=== PATIENT | male | born 1940 | race Caucasian/White ===

== ENCOUNTER 2024-04-19 09:05 | Inpatient (IN) | payer MEDICARE, OTHER ==
[2024-04-19] MEDS ORDERED: NA CHLORIDE 0.9% 1,000 ML ONE ×2 (09:50→21:09)
--- NOTE | 2024-04-19 10:07 | RAD REPORT ---
EXAMINATION: Head Brain Wo Cont CLINICAL INDICATION: Male, 83 years old.CONFUSED TECHNIQUE: Axial CT images from the skull base to the vertex without intravenous contrast. Coronal an d sagittal reformatted images were created from the data set. One or more of the following dose reduction techniques were used: Automated exposure control, adjustment of the mA and/or kV according to patient size, and/or iterative reconstruction. Unless otherwise specified, incidental findings do not require dedicated imaging follow-up. [id number]. COMPARISON: No prior exam. FINDINGS: INTRACRANIAL: No acute intracranial hemorrhage. No hydrocephalus. No mass effect or midline shift. Mo derate size remote left MCA territory infarct.Age advanced cerebral atrophy. VASCULATURE: No visualized abnormalities in the arteries or dural venous sinuses. SCALP/SKULL: No calvarial fracture identified. No acute soft tissue abnormality. SINUSES: The visualized paranasal sinuses and mastoid air cells are predominantly clear. No significa nt mastoid fluid. IMPRESSION: No acute intracranial abnormality.
[2024-04-19 10:35] LABS: Absolute Eosinophils 0.2 K/uL (0-0.5); Absolute Lymphocytes (CBC) 0.8 K/uL (0.7-4.9); Absolute Monocytes 0.5 K/uL (0.1-1.3); Absolute Neutrophil 10.8 K/uL (1.8-8.0); Basophils % 0.3 % (0-1.3); Eosinophils % 1.3 % (0-4.4); Hemoglobin 10.8 g/dL (13.6-17.9); Lymphocytes % 6.7 % (15.3-44.8); MCH 31.8 pg (27.0-35.0); MCHC 33.8 g/dL (32.0-36.0); MCV 93.9 fL (80-100); MPV 10.1 fL (7.6-11.3); Monocytes % 3.8 % (3.3-12.3); Neutrophils % 87.9 % (41.7-73.7); Nucleated Red Blood Cells % 0.1 % (0-0); Platelets 171 thou/uL (152-406); RBC Red Blood Cell Count 3.41 M/uL (4.33-5.43); Red Cell Distribution Width 14.2 % (12.1-15.2)
--- NOTE | 2024-04-19 10:37 | RAD REPORT ---
EXAM: Chest Single View HISTORY: 83 years Male ams COMPARISON: None. FINDINGS: LUNGS/PLEURA: Linear opacities in the lung bases probably representing some atelectasis or subsegment al scarring. CARDIAC/MEDIASTINUM: The cardiac silhouette is within normal limits. UPPER ABDOMEN: No significant abnormality. BONES: No acute abnormality. LINES/TUBES/OTHER: N/A IMPRESSION: Likely some mild scarring or atelectasis in the lung bases. No consolidative airspace disease or tia a.
[2024-04-19 10:58] LABS: Albumin 2.4 g/dL (3.4-5.0); Albumin/Globulin Ratio 0.6 (1.1-1.8); Anion Gap 10.9 mEq/L (5.0-15.0); Bilirubin Direct 0.5 mg/dL (0-0.2); Bilirubin Indirect, Calculated 0.4 mg/dL (0.2-0.8); Bilirubin Total 0.9 mg/dL (0.2-1.0); Potassium 3.9 mEq/L (3.5-5.1); Protein, Total 6.4 g/dL (6.4-8.2); Troponin High Sensitivity 21.2 pg/mL (<58.9)
[2024-04-19 13:39] LABS: Specific Gravity 1.026 (1.005-1.030); Sqamous Epithelial <5 /HPF (None Seen); Transitional Epithelial <5 /HPF (None Seen); Urine Bacteria <20 /HPF (<20); Urine Bilirubin NEGATIVE (Negative); Urine Blood Trace (Negative); Urine Clarity Extremely Turbid (Clear); Urine Color Yellow (Yellow); Urine Culture Reflex Order NOT NEEDED; Urine Glucose NEGATIVE (Negative); Urine Ketones NEGATIVE (Negative); Urine Micro Reflex YN NO BILL MICROSCOPIC; Urine Mucus Slight /HPF (None Seen); Urine Nitrite NEGATIVE (Negative); Urine Protein 1+ (Negative); Urine RBC <5 /HPF (None Seen); Urine Urobilinogen Normal (Normal); Urine WBC <5 /HPF (<5); Urine pH 5.5 (5.0-7.0)
--- NOTE | 2024-04-19 14:03 | EDPHYS ---
Physician Documentation [facility] Name: Arjun Barillas Age: 83 yrs Sex: Male : 1940 Arrival Date: 04/19/2024 Time: 09:05 Bed 17 Private MD: ED Physician Eliot Powers HPI: 04/19 09:50 This 83 yrs old Male presents to ER via EMS with complaints of Doesn't Feel Right. rt 10:21 Patient presents to the ED with generally not feeling well for the past 3 days, history rt is limited due to patient with advanced dementia. No further history could be obtained, denies other symptoms. Symptoms are moderate in severity, no other aggravating or alleviating factors.. Historical: - Allergies: :35 No Known Allergies; bp - Home Meds: :35 Unable to obtain [Active]; bp - PMHx: 09:35 Cerebrovascular accident; Alzheimer's disease; bp - Immunization history:: Adult Immunizations up to date. - Infectious Disease History:: Denies. - Social history:: Smoking status: Patient denies any tobacco usage or history of. - Family history:: not pertinent. ROS: 10:21 Constitutional: rt 10:21 Unable to obtain ROS due to baseline dementia, Exam: 10:21 Constitutional: This is a well developed, well nourished patient who is awake, alert, rt and in no acute distress. Head/Face: Normocephalic, atraumatic. Chest/axilla: Normal chest wall appearance and motion. Nontender with no deformity. No lesions are appreciated. Cardiovascular: Regular rate and rhythm with a normal S1 and S2. No gallops, murmurs, or rubs. Normal PMI, no JVD. No pulse deficits. Respiratory: Lungs have equal breath sounds bilaterally, clear to auscultation and percussion. No rales, rhonchi or wheezes noted. No increased work of breathing, no retractions or nasal flaring. Abdomen/GI: Soft, non-tender, with normal bowel sounds. No distension or tympany. No guarding or rebound. No evidence of tenderness throughout. Skin: Warm, dry with normal turgor. Normal color with no rashes, no lesions, and no evidence of cellulitis. MS/ Extremity: Pulses equal, no cyanosis. Neurovascular intact. Full, normal range of motion. Neuro: Awake and alert, GCS 15, oriented to person, place, time, and situation. Cranial nerves II-XII grossly intact. Motor strength 5/5 in all extremities. Sensory grossly intact. Cerebellar exam normal. Normal gait. 14:04 ECG was reviewed by the Attending Physician. rt Vital Signs: 09:34 BP 135 / 55; Pulse 45; Resp 15; Temp 98; Pulse Ox 97% ; Weight 68.04 kg; Height 5 ft. 7 ll1 in. ; 11:00 BP 128 / 88; Pulse 56; Resp 17; Pulse Ox 100% ; me1 12:00 BP 121 / 69; Pulse 56; Resp 17; Pulse Ox 100% ; me1 13:00 BP 150 / 44; Pulse 45; Resp 19; Pulse Ox 93% ; me1 14:00 BP 111 / 59; Pulse 53; Resp 20; Pulse Ox 90% on R/A; me1 15:00 BP 139 / 95; Pulse 53; Resp 19; Pulse Ox 97% on 2 lpm NC; me1 16:00 BP 143 / 52; Pulse 51; Resp 21; Pulse Ox 97% 2 lpm ; me1 17:00 BP 147 / 49; Pulse 62; Resp 18; Pulse Ox 95% 2 lpm ; me1 17:57 Temp 101.4; me1 09:34 Body Mass Index 23.49 (68.04 kg, 170.18 cm) ll1 MDM: 09:25 Medical Screening Exam initiated rt 14:04 Differential Diagnosis SHREYA, dehydration, anemia, UTI. Data reviewed: vital signs, rt nurses notes, lab test result(s), EKG, radiologic studies. Consideration of Admission/Observation Patient was admitted/placed on observation. Management of patient was discussed with the following: Hospitalist: Agrees to admit. I considered the following discharge prescriptions or medication management in the emergency department Medications were administered in the Emergency Department. See MAR. Independent interpretation of the following test(s) in the Emergency Department CT Scan: My interpretation is No intracranial hemorrhage syndrome interpretation of CT scan images. Care significantly affected by the following chronic conditions: Dementia. Counseling: I had a detailed discussion with the patient and/or guardian regarding the historical points, exam findings, and any diagnostic results supporting the discharge/admit diagnosis, lab results, radiology results. Response to treatment: the patient's symptoms have mildly improved after treatment. 04/19 09:30 Order name: Basic Metabolic Panel; Complete Time: 11:05 rt 04/19 09:30 Order name: CBC with Diff; Complete Time: 11:05 rt 04/19 09:30 Order name: LFT's; Complete Time: 11:05 rt 04/19 09:30 Order name: Troponin HS; Complete Time: 11:05 rt 04/19 09:30 Order name: UAM; Complete Time: 13:40 rt 04/19 17:26 Order name: Basic Metabolic Panel EDMS 04/19 17:26 Order name: Basic Metabolic Panel EDMS 04/19 17:26 Order name: Basic Metabolic Panel EDMS 04/19 17:26 Order name: Basic Metabolic Panel EDMS 04/19 17:26 Order name: Basic Metabolic Panel EDMS 04/19 17:26 Order name: Basic Metabolic Panel EDMS 04/19 17:26 Order name: Basic Metabolic Panel EDMS 04/19 17:26 Order name: Basic Metabolic Panel EDMS 04/19 17:26 Order name: CBC with Automated Diff EDMS 04/19 17:26 Order name: CBC with Automated Diff EDMS 04/19 17:26 Order name: CBC with Automated Diff EDMS 04/19 17:26 Order name: CBC with Automated Diff EDMS 04/19 17:26 Order name: CBC with Automated Diff EDMS 04/19 17:26 Order name: CBC with Automated Diff EDMS 04/19 17:26 Order name: CBC with Automated Diff EDMS 04/19 17:26 Order name: CBC with Automated Diff EDMS 04/19 17:26 Order name: Magnesium EDMS 04/19 17:26 Order name: Magnesium EDMS 04/19 17:26 Order name: Magnesium EDMS 04/19 17:26 Order name: Magnesium EDMS 04/19 17:26 Order name: Magnesium EDMS 04/19 17:26 Order name: Magnesium EDMS 04/19 17:26 Order name: Magnesium EDMS 04/19 17:26 Order name: Magnesium EDMS 04/19 17:26 Order name: Phosphorus EDMS 04/19 17:26 Order name: Phosphorus EDMS 04/19 17:26 Order name: Phosphorus EDMS 04/19 17:26 Order name: Phosphorus EDMS 04/19 17:26 Order name: Phosphorus EDMS 04/19 17:26 Order name: Phosphorus EDMS 04/19 17:26 Order name: Phosphorus [facility] 04/19 17:26 Order name: Phosphorus [facility] 04/19 17:26 Order name: Troponin High Sensitivity [facility] 04/19 17:26 Order name: Troponin High Sensitivity [facility] 04/19 17:26 Order name: Troponin High Sensitivity [facility] 04/19 17:59 Order name: Blood Culture [facility] 04/19 09:30 Order name: XRAY Chest (1 view); Complete Time: 10:38 rt 04/19 09:30 Order name: CT Head Brain wo Cont; Complete Time: 10:38 rt 04/19 09:30 Order name: EKG; Complete Time: 09:31 rt 04/19 17:26 Order name: Speech Therapy Consult [facility] 04/19 17:27 Order name: Physical Therapy Consult [facility] 04/19 09:30 Order name: Cardiac monitoring; Complete Time: 10:23 rt 04/19 09:30 Order name: IV Saline Lock; Complete Time: 10: rt 04/19 09:30 Order name: Labs collected and sent; Complete Time: 10: rt 04/19 09:30 Order name: O2 Per Protocol; Complete Time: 10:23 rt 04/19 09:30 Order name: O2 Sat Monitoring; Complete Time: 10:23 rt EC:04 Rate is 54 beats/min. Rhythm is regular, 2nd Degree Block with No ectopy. QRS [place] is rt Normal. NM interval is normal. QRS interval is normal. QT interval is normal. No Q waves. No ST changes noted. Administered Medications: 10:00 Drug: NS 0.9% IV 1000 ml IV at 1000 ml once; to be given as a bolus over 60 minutes bp Route: IV; Rate: 1000 ml; Site: right antecubital; 13:26 Follow up: Response: No adverse reaction; IV Status: Completed infusion; IV Intake: me1 1000ml 16:26 Drug: Geodon IM 10 mg IM once Route: IM; Site: left deltoid; me1 17:35 Follow up: Response: No adverse reaction me1 17:58 Drug: Acetaminophen PO 1000 mg PO once Route: PO; me1 19:19 Follow up: Response: No adverse reaction; Temperature is decreased me1 Disposition Summary: 04/19/24 17:00 Hospitalization Ordered Notes: Hospitalization Status: Inpatient Admission(04/19/24 17:00) rt Provider: Sue Haney(04/19/24 17:00) rt Location: Telemetry/MedSurg (observation)(04/19/24 17:00) rt Condition: Stable(04/19/24 17:00) rt Problem: new(04/19/24 17:00) rt Symptoms: have improved(04/19/24 17:00) rt Bed/Room Type: Standard(04/19/24 17:00) rt Room Assignment: [facility](04/19/24 20:46) Diagnosis - Acute kidney injury rt - Generalized weakness rt Forms: - Medication Reconciliation Form rt - SBAR form rt - Leadership Thank You Letter rt Signatures: Dispatcher [employer] Steph Hernandez, RN RN cg Tate Holland RN RN bp Eliot Powers MD MD rt Abril Davis RN RN me1 Corrections: (The following items were deleted from the chart) 16:06 14:02 Inpatient Admission rt rt 16:06 14:02 Joe Ornelas rt rt 16:06 14:02 Telemetry/MedSurg (Inpatient) rt rt 16:06 14:02 Fair rt rt 16:06 14:02 new rt rt 16:06 14:02 have improved rt rt 16:06 14:02 Standard rt rt 16:06 14:02 rt rt 16:06 14:02 Generalized weakness rt rt 16:06 14:02 Acute kidney injury rt rt 16:58 16:07 DrOdilon rt rt 16:58 16:07 's Administration System rt rt 16:58 16:07 Patient request rt rt 16:58 16:07 Stable rt rt 16:58 16:07 new rt rt 16:58 16:07 are unchanged rt rt 16:58 16:07 Acute kidney injury rt rt 20:46 17:00 rt cg
--- NOTE | 2024-04-19 14:03 | ER ---
Nurse's Notes [facility] Name: Arjun Barillas Age: 83 yrs Sex: Male : 1940 Arrival Date: 04/19/2024 Time: 09:05 Bed 17 Private MD: Diagnosis: Acute kidney injury;Generalized weakness Presentation: 04/19 09:34 Chief complaint: EMS states: 3 DAYS PROGRESSIVE MALAISE. Coronavirus screen: At this bp time, the client does not indicate any symptoms associated with coronavirus-19. Ebola Screen: No symptoms or risks identified at this time. Initial Sepsis Screen: Does the patient meet any 2 criteria? No. Patient's initial sepsis screen is negative. Does the patient have a suspected source of infection? No. Patient's initial sepsis screen is negative. Risk Assessment: Do you want to hurt yourself or someone else? Patient reports no desire to harm self or others. Onset of symptoms is unknown. Care prior to arrival: IV initiated. 20 GA, in the right antecubital area, Glucose check: 86. 09:34 Method Of Arrival: EMS bp 09:34 Acuity: BETTY 3 bp Triage Assessment: 09:35 General: Appears in no apparent distress. Behavior is calm, cooperative. Pain: Denies bp pain. EENT: No deficits noted. Neuro: No deficits noted. Cardiovascular: Rhythm is sinus bradycardia. Respiratory: No deficits noted. GI: No signs and/or symptoms were reported involving the gastrointestinal system. : No signs and/or symptoms were reported regarding the genitourinary system. Derm: No deficits noted. Musculoskeletal: No deficits noted. Historical: - Allergies: 09:35 No Known Allergies; bp - Home Meds: 09:35 Unable to obtain [Active]; bp - PMHx: 09:35 Cerebrovascular accident; Alzheimer's disease; bp - Immunization history:: Adult Immunizations up to date. - Infectious Disease History:: Denies. - Social history:: Smoking status: Patient denies any tobacco usage or history of. - Family history:: not pertinent. Screenin:30 [facility] ED Fall Risk Assessment (Adult) History of falling in the last 3 months, me1 including since admission No falls in past 3 months (0 pts) Confusion or Disorientation Yes (5 pts) Intoxicated or Sedated No (0 pts) Impaired Gait Yes (1 pt) Mobility Assist Device Used Yes (1 pt) Altered Elimination No (0 pt) Score/Fall Risk Level 3 or more points = High Risk Maintained a safe environment, Provided non-skid footwear, Hourly rounding (assess needs \T\ fall precautionary measures) done. Abuse screen: Denies threats or abuse. Nutritional screening: No deficits noted. Tuberculosis screening: No symptoms or risk factors identified. Assessment: 09:35 General: Appears in no apparent distress. comfortable. General: Appears in no apparent bp distress. Pain: Denies pain. Neuro: Level of Consciousness is awake, obeys commands, Oriented to person. Cardiovascular: Rhythm is atrial fibrillation. 12:30 General: Appears in no apparent distress. comfortable, Behavior is calm, cooperative, me1 appropriate for age, Reports fatigue for 2-3 days. Pain: Denies pain. Neuro: Level of Consciousness is awake, alert, obeys commands, confused, Oriented to person. Cardiovascular: Patient's skin is warm and dry. Respiratory: Reports cough that is dry, Airway is patent Respiratory effort is even, unlabored, Respiratory pattern is regular, symmetrical. GI: No signs and/or symptoms were reported involving the gastrointestinal system. : No signs and/or symptoms were reported regarding the genitourinary system. EENT: No signs and/or symptoms were reported regarding the EENT system. Derm: Skin is intact, is healthy with good turgor, Skin is pink, warm \T\ dry. Musculoskeletal: No signs and/or symptoms reported regarding the musculoskeletal system. Vital Signs: 09:34 BP 135 / 55; Pulse 45; Resp 15; Temp 98; Pulse Ox 97% ; Weight 68.04 kg; Height 5 ft. 7 ll1 in. ; 11:00 BP 128 / 88; Pulse 56; Resp 17; Pulse Ox 100% ; me1 12:00 BP 121 / 69; Pulse 56; Resp 17; Pulse Ox 100% ; me1 13:00 BP 150 / 44; Pulse 45; Resp 19; Pulse Ox 93% ; me1 14:00 BP 111 / 59; Pulse 53; Resp 20; Pulse Ox 90% on R/A; me1 15:00 BP 139 / 95; Pulse 53; Resp 19; Pulse Ox 97% on 2 lpm NC; me1 16:00 BP 143 / 52; Pulse 51; Resp 21; Pulse Ox 97% 2 lpm ; me1 17:00 BP 147 / 49; Pulse 62; Resp 18; Pulse Ox 95% 2 lpm ; me1 17:57 Temp 101.4; me1 09:34 Body Mass Index 23.49 (68.04 kg, 170.18 cm) ll1 ED Course: 09:22 Patient arrived in ED. bd 09:23 Eliot Powers MD is Attending Physician. rt 09:33 Tate Holland, PAOLO is Primary Nurse. bp 09:35 Triage completed. bp 09:35 Arm band placed on. bp 09:50 CT Head Brain wo Cont In Process Unspecified. EDMS 10:30 XRAY Chest (1 view) In Process Unspecified. EDMS 12:05 Maintain EMS IV. Dressing intact. Good blood return noted. Site clean \T\ dry. Gauge \T\ me 1 site: 20g RAC. Flushed with 10 mL NS. 12:30 Allergy band placed. Bed in low position. Call light in reach. Side rails up X2. me1 Provided Education on: POC. Verbalized understanding.. Client placed on continuous cardiac and pulse oximetry monitoring. NIBP monitoring applied. monitor technician on. Pulse ox on. NIBP on. 12:30 No provider procedures requiring assistance completed. me1 13:26 UAM Sent. me1 13:26 Urine collected: clean catch specimen, jocelyn colored. me1 14:02 Joe Ornelas MD is Hospitalizing Provider. rt 14:36 initiated transfer to [facility], faxed chart to ER as requested by transfer center. bd 16:[address] Powers, pt will stay at [facility]. bd 16:59 Sue Haney MD is Hospitalizing Provider. rt 20:25 First set of blood cultures drawn by me. oe 20:45 Second set of blood cultures drawn by me. oe 20:50 Inserted saline lock: 22 gauge in left wrist, using aseptic technique. Blood collected. oe Flushed with 10 mL NS. 21:17 Patient admitted, IV remains in place. me1 Administered Medications: 10:00 Drug: NS 0.9% IV 1000 ml IV at 1000 ml once; to be given as a bolus over 60 minutes bp Route: IV; Rate: 1000 ml; Site: right antecubital; 13:26 Follow up: Response: No adverse reaction; IV Status: Completed infusion; IV Intake: me1 1000ml 16:26 Drug: Geodon IM 10 mg IM once Route: IM; Site: left deltoid; me1 17:35 Follow up: Response: No adverse reaction me1 17:58 Drug: Acetaminophen PO 1000 mg PO once Route: PO; me1 19:19 Follow up: Response: No adverse reaction; Temperature is decreased me1 Medication: 12:30 VIS not applicable for this client. me1 Intake: 13:26 IV: 1000ml; Total: 1000ml. me1 Outcome: 14:02 Decision to Hospitalize by Provider. rt 16:07 ER care complete, transfer ordered by . rt 17:00 Decision to Hospitalize by Provider. rt 21:17 Admitted to Med/surg accompanied by tech, via stretcher, room 222, with oxygen, with mo1 chart, Report called to faxed, receipt confirmed with Rivera 21:17 Condition: stable 21:17 Instructed on the need for admit, 22:25 Patient left the ED. me1 Signatures: Dispatcher [employer] EDMS Elvia Katz [place] oe Peltier, Brian, RN RN bp Kaiden Magallon RN RN ll1 Eliot Powers MD MD rt Abril Davis, PAOLO RN me1 Corrections: (The following items were deleted from the chart) 14:32 09:34 BP 135 / 55; Pulse 45bpm; Resp 15bpm; Pulse Ox 97%; Temp 98F; bp ll1
[2024-04-19] MEDS ORDERED: ZIPRASIDONE MESYLA 20 MG/VIAL IM ONE (16:20)
[2024-04-19] MEDS ORDERED: WATER FOR INJ,STERILE 10 ML ONE (16:21)
--- NOTE | 2024-04-19 17:34 | P.HP ---
Certification for Inpatient Patient admitted to: Inpatient With expected LOS: >2 Midnights <Mayra Fraser - Last Filed: 04/19/24 17:44> Patient History Date of Service: 04/19/24 Reason for admission: Generalized weakness History of Present Illness: Arjun Barillas is an 83 year old male with Pmhx CVA, severe dementia, and Alzheimer's who presents to the ED with generalized weakness for 3 days. Arjun has severe dementia and is unable to communicate but does know his name. On evaluation, kidney function has decreased with no known kidney issues in the past. Laboratory evaluation significant for BUN/creatinine WBC 12.2, H&H 10/32, BUN/creatinine 84/2.35, GFR 26. Patient sees [facility] for medical care. Head CT report "No acute intracranial abnormality. " Chest x-ray report "Likely some mild scarring or atelectasis in the lung bases. No consolidative airspace disease or edema." Arjun will be admitted to hospitalist service for further evaluation. - Past Medical/Surgical History -: CVA -: Alzheimer's -: Severe dementia Past Surgical History: Unable to obtain - Social History Smoking Status: Never smoker Alcohol use: No CD- Drugs: No <Mayra Fraser - Last Filed: 04/19/24 17:44> Date of Service: 04/19/24 <Sue Haney - Last Filed: 04/19/24 19:35> Review of Systems is unable to be obtained <Mayra Fraser - Last Filed: 04/19/24 17:44> Physical Examination - Physical Exam General: In no apparent distress, Oriented x1 HEENT: Atraumatic, Normocephalic Neck: Supple, 2+ carotid pulse no bruit Respiratory: Clear to auscultation bilaterally, Normal air movement Cardiovascular: No edema, Normal pulses, Regular rate/rhythm Capillary refill: <2 Seconds Gastrointestinal: Normal bowel sounds, Soft and benign Musculoskeletal: No clubbing Integumentary: No rashes Neurological: Normal speech, Normal tone - Studies Laboratory Data (last 24 hrs) 04/19/24 04/19/24 10:22 10:22 WBC 12.20 H Hgb 10.8 L Hct 32.0 L Plt Count 171 Sodium 136 Potassium 3.9 BUN 84 H Creatinine 2.35 H Glucose 85 Total Bilirubin 0.9 AST 59 H ALT 96 H Alkaline Phosphatase 116 <Mayra Fraser - Last Filed: 04/19/24 17:44> - Studies Laboratory Data (last 24 hrs) 04/19/24 04/19/24 10:22 10:22 WBC 12.20 H Hgb 10.8 L Hct 32.0 L Plt Count 171 Sodium 136 Potassium 3.9 BUN 84 H Creatinine 2.35 H Glucose 85 Total Bilirubin 0.9 AST 59 H ALT 96 H Alkaline Phosphatase 116 <Sue Haney - Last Filed: 04/19/24 19:35> Assessment and Plan - Plan Assessment and Gaytan SIRS 2/2 unknown etilogy -Sirs criteria febrile, WBC 12.2 -Tylenol -Rocephin started -Follow Blood cultures -UA negative Generalized weakness History of CVA with no residual effects Severe dementia/Alzheimer's Aggitation -Geodon given in the ED -fall risk -supportive care -Physical therapy -speech therapy SHREYA likely 2/2 dehydration -Gentle IVF - monitor in AM labs 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
[2024-04-19] MEDS ORDERED: ACETAMINOPHEN 500 MG TAB ONE (17:53)
[2024-04-19] MEDS: NA CHLORIDE 0.9% 1,000 ML IV SCH (18:00)
[2024-04-19] MEDS: CEFTRIAXONE 1,000 MG in NA CHLORIDE 0.9% 50 ML IVPB SCH (20:00)
[2024-04-19] MEDS: ATORVASTATIN 40 MG TAB PO SCH (21:00)
[2024-04-19] MEDS ORDERED: ATORVASTATIN 40 MG TAB ONE (21:09)
[2024-04-19] MEDS ORDERED: CEFTRIAXONE 1000 MG/VIAL ONE (21:09)
[2024-04-20] MEDS: HEPARIN 5000 UNIT/ML 1 ML VIAL SQ SCH (01:05)
[2024-04-20 05:20] LABS: Absolute Eosinophils 0.2 K/uL (0-0.5); Absolute Lymphocytes (CBC) 1.3 K/uL (0.7-4.9); Absolute Monocytes 0.7 K/uL (0.1-1.3); Absolute Neutrophil 12.7 K/uL (1.8-8.0); Eosinophils % 1.5 % (0-4.4); Hematocrit 29.6 % (39.6-49.0); Lymphocytes % 8.4 % (15.3-44.8); MCH 31.8 pg (27.0-35.0); MCHC 33.8 g/dL (32.0-36.0); MCV 94.2 fL (80-100); MPV 10.3 fL (7.6-11.3); Neutrophils % 85.1 % (41.7-73.7); Nucleated Red Blood Cells % 0.1 % (0-0); Platelets 172 thou/uL (152-406); RBC Red Blood Cell Count 3.14 M/uL (4.33-5.43); Red Cell Distribution Width 14.2 % (12.1-15.2)
[2024-04-20] MEDS: LEVOTHYROXINE SOD 0.05 MG TABLET PO SCH (05:34)
[2024-04-20 05:36] LABS: Magnesium 3.4 mg/dL (1.6-2.4); Phosphorus 3.1 mg/dL (2.5-4.9)
[2024-04-20 06:54] LABS: Differential Total Cells Count 100; Lymphocytes 12 % (15-42); Monocytes 1 % (0-10); Segmented Neutrophils 87 % (40-80)
[2024-04-20 06:55] LABS: Blood Morphology Comment NOT SEEN (NOT SEEN); Platelet Estimate ADEQ
[2024-04-20] MEDS: CLOPIDOGREL 75 MG TABLET PO SCH (07:55)
[2024-04-20] MEDS: FLUOXETINE 20 MG CAP PO SCH (08:02)
[2024-04-20] MEDS: FINASTERIDE 5 MG TAB PO SCH (08:02)
[2024-04-20] MEDS: AMLODIPINE 5 MG TAB PO SCH (08:06)
--- NOTE | 2024-04-20 11:26 | RAD REPORT ---
EXAM: CT Head Brain Wo Cont HISTORY: fall COMPARISON: 04/19/2024 TECHNIQUE: Multiple contiguous axial images were obtained for a CT of the brain without contrast. Sag ittal and coronal reformats were performed. One or more of the following dose reduction techniques were used: Automated exposure control, adjus tment of the mA and kV according to patient size, and iterative reconstruction. Unless otherwise specified, incidental findings do not require dedicated imaging follow-up. FINDINGS: No evidence of hydrocephalus, intracranial hemorrhage, or extra-axial fluid collection. Left insular/subinsular, as well as opercular and underlying frontal white matter and centrum semiov yenni bowel encephalomalacia with volume loss. Ex vacuo dilation of the left lateral ventricle. Background moderate diffuse parenchymal volume loss. Findings are stable. The calvarium is intact. The visualized paranasal sinuses and mastoid air cells are essentially clear . IMPRESSION: No evidence of acute intracranial abnormality. Stable chronic findings of left encephalomalacia cente red on the insular and opercular cortex as above, suggesting sequelae of remote ischemia.
--- NOTE | 2024-04-20 12:01 | RAD REPORT ---
EXAMINATION: XR Hip Right 2 View CLINICAL INDICATION: Male, 83 years old. [facility] fall TECHNIQUE: 2 view radiograph of the right hip were obtained. COMPARISON: No prior exam. FINDINGS: No evidence of fracture or dislocation. Normal alignment. Mild right hip joint degenerative changes. Mild to moderate SI joint degenerative changes. No other focal bone lesion. Soft tissues are unremarkable. IMPRESSION: No acute osseous abnormalities. Degenerative changes as above.
--- NOTE | 2024-04-20 12:02 | RAD REPORT ---
EXAMINATION: XR RIGHT SHOUDLER CLINICAL INDICATION: Male, 83 years old. fall TECHNIQUE:Two view radiograph of the right shoulder were obtained. COMPARISON: No prior exam. FINDINGS: No acute bone or joint abnormality detected. Moderate AC joint degenerative changes. IMPRESSION: No acute osseous abnormalities. Moderate AC joint degenerative changes..
[2024-04-20] MEDS: PIPER TAZO 3.375 GM in NA CHLORIDE 0.9% 100 ML IV SCH (13:49)
--- NOTE | 2024-04-20 14:34 | P.PN ---
Date of Service: 04/20/24 Subjective: Bradycardic overnight. No new complaint. He appears to be improving. Discussed with nursing staff. Had a fall late this morning. Review of Systems Unable to obtain secondary to aphasia Physical Examination - Physical Exam General: In no apparent distress, Oriented x1 HEENT: Atraumatic, Normocephalic Neck: Supple, 2+ carotid pulse no bruit Respiratory: Clear to auscultation bilaterally, Normal air movement Cardiovascular: No edema, Normal pulses, Regular rate/rhythm Capillary refill: <2 Seconds Gastrointestinal: Normal bowel sounds, Soft and benign Musculoskeletal: No clubbing Integumentary: No rashes Neurological: Normal speech, Normal tone - Studies Laboratory Data (last 24 hrs) 04/19/24 04/19/24 10:22 10:22 WBC 12.20 H Hgb 10.8 L Hct 32.0 L Plt Count 171 Sodium 136 Potassium 3.9 BUN 84 H Creatinine 2.35 H Glucose 85 Total Bilirubin 0.9 AST 59 H ALT 96 H Alkaline Phosphatase 116 <Mayra Fraser - Last Filed: 04/19/24 17:44> - Studies Laboratory Data (last 24 hrs) 04/19/24 04/19/24 10:22 10:22 WBC 12.20 H Hgb 10.8 L Hct 32.0 L Plt Count 171 Sodium 136 Potassium 3.9 BUN 84 H Creatinine 2.35 H Glucose 85 Total Bilirubin 0.9 AST 59 H ALT 96 H Alkaline Phosphatase 116 <Sue Haney - Last Filed: 04/19/24 19:35> Assessment and Plan SIRS 2/2 unknown etilogy -WBC trend -Elevated procalcitonin -Broaden antibiotics to Zosyn -CRP to 50 -Blood cultures with no growth thus far -UA negative Bradycardia -Obtain EKG -Consult cardiology -Fall precautions -Needs a sitter Aphasia -Unclear if this has been present in the past or has recently worsened -Consult neurology Fall -Fell this morning -Obtain CT head, right shoulder x-ray, hip x-ray Generalized weakness History of CVA with no residual effects Severe dementia/Alzheimer's Aggitation -Geodon given in the ED -fall risk -supportive care -Physical therapy -speech therapy has improved diet SHREYA likely 2/2 dehydration -Improving -Continue IVF Hypomagnesemia -Replace magnesium 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
[2024-04-20] MEDS: MAGNESIUM SULFATE 1 gm IVPB 1 GM/100 ML BAG IV ONE (14:45)
--- NOTE | 2024-04-20 18:47 | CON ---
Reason For Consultation: Consultation called because of possible new stroke with aphasia. History Of Present Illness: Mr. Barillas is an 83-year-old patient who has a history of stroke 15 ye ars ago and reported Alzheimer disease. His daughter was in the room. She said after the stroke 15 years ago, he had difficulty with his expression. Comprehension remained intact. He had residual ri ght face, arm, and leg weakness and numbness, but recovered to be independent, could drive and did so up to about 4 years ago. She said few days ago, perhaps about 3 days ago, seemed to have more diffi culty getting his thoughts out and was unable to keep his balance and actually fell impacting the lef t hip region. He was brought to [facility] on 04/19/2024 and his workup included a head CT scan, which identified a moderate remote left MCA territory stroke and advanced cerebral atrophy. Th ere was no acute stroke, no hemorrhagic findings and no other masses. Laboratory Studies: Showed elevated white blood cell count, today was up to 14.9; neutrophils initia lly 87.9 and 85.1, hemoglobin 10.0, platelets 172. His electrolyte panel showed elevated creatinine of 2.35, consistent with renal insufficiency and dehydration; BUN elevated to 84. His liver function studies show elevated AST of 59 and ALT of 96, alkaline phosphatase 116. His troponins were negativ e. C-reactive protein very elevated to 250 and procalcitonin today elevated to 2.14. His urinalysis shows trace blood, 1+ crystals, 5-10 hyaline casts, 1+ total protein, extreme clarity. He did have a hip x-ray after a fall, which reportedly fell out of the bed. His daughter indicated that when he was brought up, she did tell staff that he required 24-hour supervision because at home he would get up and get out of bed and be unsafe with ambulation. The patient reportedly had a fall onto the left side. The x-ray showed mild left hip joint degeneration, [id number] SI joint degenerative chito nges. No focal bone lesions. No soft tissue issues. Shoulder x-ray was also done and the study amy wed no acute osseous problem. Moderate AC joint degenerative changes. A repeat head CT scan was don e today after the initial admission CT scan and that study showed no evidence of any acute infarct an d stable findings were seen with left-sided encephalomalacia. Past Medical History: Includes dementia; stroke with expressive aphasia; right face, arm, and leg nu mbness weakness from which he recovered well. Allergies: NO KNOWN DRUG ALLERGIES. Current Medications: Tylenol 650 mg every 4 hours as needed, Norvasc 5 mg daily, Lipitor 40 mg at be dtime, Plavix 75 mg daily, Proscar 5 mg daily, Prozac 20 mg daily, heparin 5000 units subcutaneous ev andrea 8 hours Synthroid 0.05 mg daily. He is on piperacillin/tazobactam 3.375 g every 12 hours. Family History: Noncontributory. Social History: No alcohol, tobacco, or IV drug use. The patient was in a retirement prior to that w ith his daughter. Physical Examination: Vital Signs: Blood pressure 149/67, pulse 42, respiratory rate 20, temperature 98.1, oxygen saturati on 98%. General: Mr. Barillas is resting in bed. Neuro: He has significant difficulty expressing his thoughts, but eventually gets his words, gets hi s ideas across by gesturing and speaking, but very difficult to comprehend speech. He does follow in structions very well. He is able to show thumbs-up sign bilaterally. He is able to hold both hands up for 10 count without any drift and to hold his legs up without drift as well. Sensation is intact . Coordination is intact. Chest: Good air movement. Abdomen: Soft. Extremities: No clubbing, cyanosis, or edema noted. Assessment And Plan: Mr. Barillas is an 83-year-old patient who appears to have possible sepsis. Hi s procalcitonin is elevated, white blood cell count is elevated. His neutrophil count is elevated. He has had a chest x-ray that shows no acute cardiothoracic processes. He did have a reported fall a nd bumped the left side. Left hip x-ray is negative. Left shoulder x-ray is negative for any fractu res. Repeat head CT scan is negative. He has hypothyroidism as well. He is unlikely to have a new stroke. His neurological examination is not consistent with his new stroke. His daughter says his s peech is close to his baseline. Perhaps he was a little worse before coming in. In addition, he has been dehydrated, which is the reason likely for the sequelae of stroke to be expressed along with th e infection. Plan: Aggressive management of the systemic infection. Continue piperacillin and tazobactam. Jordan nue with antiplatelet, Plavix 75 mg daily. For dyslipidemia, continue Lipitor 40 mg daily. Continue Norvasc for hypertension control and DVT prophylaxis on board. We will continue Proscar for his pro state hypertrophy. The patient will likely benefit from some speech therapy to help him to continue to improve his ability to communicate more effectively. Please note, after his discharge, he may fol low up in Dr. Hansen's office within a month. SINGH/KIM Voice ID: [id number] Report ID: [id number]
[2024-04-21 05:01] LABS: Absolute Eosinophils 0.5 K/uL (0-0.5); Absolute Lymphocytes (CBC) 2.6 K/uL (0.7-4.9); Absolute Monocytes 1.2 K/uL (0.1-1.3); Absolute Neutrophil 14.9 K/uL (1.8-8.0); Basophils % 0.2 % (0-1.3); Eosinophils % 2.4 % (0-4.4); Hematocrit 30.3 % (39.6-49.0); Hemoglobin 10.1 g/dL (13.6-17.9); Lymphocytes % 13.4 % (15.3-44.8); MCH 31.2 pg (27.0-35.0); MCHC 33.4 g/dL (32.0-36.0); MCV 93.3 fL (80-100); MPV 10.5 fL (7.6-11.3); Monocytes % 6.3 % (3.3-12.3); Platelets 200 thou/uL (152-406); RBC Red Blood Cell Count 3.24 M/uL (4.33-5.43); Red Cell Distribution Width 14.2 % (12.1-15.2)
[2024-04-21 05:02] LABS: Neutrophils % 77.7 % (41.7-73.7)
[2024-04-21 05:20] LABS: Anion Gap 9.7 mEq/L (5.0-15.0); Magnesium 3.5 mg/dL (1.6-2.4); Phosphorus 2.6 mg/dL (2.5-4.9); Potassium 3.7 mEq/L (3.5-5.1)
[2024-04-21] MEDS: POTASSIUM 25 MEQ EFFERV TAB PO ONE (06:37)
[2024-04-21] MEDS: VANCOMYCIN 1.25 GM in NA CHLORIDE 0.9% 250 ML IVPB ONE (07:00)
[2024-04-21] MEDS: VANCOMYCIN 1 GM in NA CHLORIDE 0.9% 250 ML IVPB SCH (07:00)
[2024-04-21] MEDS: VANCOMYCIN 1.25 GM in NA CHLORIDE 0.9% 250 ML IVPB SCH (08:38)
--- NOTE | 2024-04-21 11:22 | P.CNS ---
Date of Consult: 04/21/24 Chief Complaint: Generalized weakness History of Present Illness: Patient with PMH of advanced dementia, stroke presented with weakness, cardiology consulted for fall, bradycardia, patient is demented and can not get any history from him, EKG shows possible Atrial flutter vs artifacts. Allergies No Known Allergies Allergy (Unverified 04/19/24 17:50) Home medications list reviewed: Yes Home Medications: Amlodipine [Norvasc] 5 mg PO DAILY 04/19/24 Areds 2 1 tab PO BID 04/19/24 Cholecalciferol (Vitamin D3) [Vitamin D3] 0.5 tab PO DAILY 04/19/24 Clopidogrel Bisulfate [Plavix] 75 mg PO DAILY 04/19/24 Finasteride 5 mg PO DAILY 04/19/24 Fluoxetine HCl 20 mg PO DAILY 04/19/24 Levothyroxine [Synthroid] 50 mcg PO DAILY 04/19/24 Multivitamin 1 each PO DAILY 04/19/24 Potassium Chloride 10 meq PO DAILY 04/19/24 Simvastatin 80 mg PO BEDTIME 04/19/24 - Past Medical/Surgical History -: CVA -: Alzheimer's -: Severe dementia - Social History Alcohol use: No CD- Drugs: No Review of Systems 10-point ROS is otherwise unremarkable Physical Examination Temp Pulse Resp BP Pulse Ox 98.0 F 44 L 16 164/69 H 94 04/21/24 08:00 04/21/24 08:00 04/21/24 08:00 04/21/24 08:00 04/21/24 08:00 General: Alert, In no apparent distress HEENT: Atraumatic, PERRLA, Mucous membr. moist/pink, EOMI, Sclerae nonicteric Neck: Supple, 2+ carotid pulse no bruit, No LAD, Without JVD or thyroid abnormality Respiratory: Clear to auscultation bilaterally, Normal air movement Cardiovascular: Regular rate/rhythm, Normal S1 S2 Gastrointestinal: Normal bowel sounds, No tenderness Musculoskeletal: No tenderness Integumentary: No rashes Neurological: Normal gait, Normal speech, Normal tone, Normal affect Lymphatics: No axilla or inguinal lymphadenopathy - Problems (1) Bradycardia Current Visit: Yes Status: Acute Plan: EKG reviewed which shows possible flutter vs sinus rhythm with artifacts. place patient on tele Hachiko echo
--- NOTE | 2024-04-21 12:01 | RAD REPORT ---
EXAM: CT CHEST, ABDOMEN AND PELVIS WITH CONTRAST CLINICAL INDICATION: Male, 83 years old. Leukocytosis, elevated procal/crp, poor historian TECHNIQUE: CT chest, abdomen, and pelvis was performed, following the administration of contrast, as per department protocol. Axial, sagittal and coronal reconstructions were obtained. One or more of the following dose reduction techniques were used: Automated exposure control, adjustment of the mA a nd/or kV according to patient size, and/or iterative reconstruction. Unless otherwise specified, incidental findings do not require dedicated imaging follow-up. COMPARISON: 09/10/2008 CT abdomen and pelvis FINDINGS: LUNGS AND AIRWAYS: Central predominant interlobular septal thickening and dependent atelectatic fishman es PLEURA: Right moderate and small left pleural effusions. No pneumothorax. MEDIASTINUM AND LYMPH NODES: No mediastinal mass or fluid collection. Normal size mediastinal, hilar, and axillary lymph nodes. THORACIC AORTA: Normal caliber and configuration. PULMONARY ARTERIES: Normal caliber. OSSEOUS STRUCTURES AND CHEST WALL: Intact. LIVER: Normal in size and contour. No focal lesion or biliary dilitation. Posterior left lobe fluid d ensity 3 cm cyst, stable. BILIARY SYSTEM: No suspicious abnormalities. PANCREAS: Mild atrophic changes multifocal parenchymal calcifications, relatively sparing the tail, s uggesting sequelae of chronic pancreatitis. No mass, ductal dilation, or smita-pancreatic fluid. SPLEEN: Normal size. No focal lesion. ADRENALS: Normal; no mass. KIDNEYS AND URETERS: Normal size and contour. No hydronephrosis. URINARY BLADDER: Normal contour. GASTROINTESTINAL TRACT: Wall thickening and mucosal hyperenhancement involving the duodenum most pron ounced along the bulb and adjacent proximal second part, with adventitial fat stranding and adjacent trace nonloculated fluid tracking along the paracolic gutter. No bowel obstruction, free air , significant free fluid or abscess. APPENDIX: No inflammatory changes in region of appendix. LYMPH NODES: No lymphadenopathy. ABDOMINAL AORTA AND OTHER VESSELS: Normal caliber aorta and IVC. MUSCULOSKELETAL: No acute or suspicious osseous abnormality. Grade 1 spondylolisthesis at L5-S1, with anterolisthesis measuring approximately 12 mm, and bilateral L5 pars interarticularis defects present IMPRESSION: Inflammatory changes involving the proximal duodenal, could reflect sequelae of infectious or inflamm atory duodenitis. The duodenal ulcer is also possible although no discrete evidence of perforation is noted. Trace fluid tracking along the right paracolic gutter. Nonspecific central predominant interstitial thickening within the lungs with pleural effusions large r on the right, may reflect central edema or fluid overload. Other incidental and chronic findings as above.
[2024-04-21] MEDS ORDERED: SODIUM CHLORIDE 0.9% 10ML INJ IV PRN (12:10)
[2024-04-21 15:34] LABS: Hematocrit 30.6 % (39.6-49.0); Hemoglobin 10.6 g/dL (13.6-17.9); MCH 32.2 pg (27.0-35.0); MCHC 34.7 g/dL (32.0-36.0); MCV 92.9 fL (80-100); MPV 10.1 fL (7.6-11.3); Platelets 232 thou/uL (152-406); Red Cell Distribution Width 14.6 % (12.1-15.2)
--- NOTE | 2024-04-21 15:57 | P.PN ---
Date of Service: 04/21/24 Subjective: Worsening leukocytosis Patient denies any specific complaints No acute events overnight Ambulatory with PT today ROS: 10 point ROS as noted above, otherwise negative Physical exam GEN: Alert, oriented, NAD HEENT: Normal conjunctiva, sclera anicteric CV: Regular rate and rhythm, no edema Pulm: Nonlabored respirations on room air ABD: Soft, nontender, nondistended MSK: No joint tenderness Integumentary: No rashes Neuro: Normal speech, normal affect Vitals reviewed Assessment: Leukocytosis/elevated procalcitonin/CRP Infectious versus inflammatory duodenitis/possible duodenal ulcer without perforation Bilateral pleural effusions-larger on the right History of CVA, Alzheimer's/dementia Bradycardia/irregular heart rhythm Acute kidney injury Hypertension Hyperlipidemia BPH Plan: Leukocytosis/elevated procalcitonin/CRP Infectious versus inflammatory duodenitis/possible duodenal ulcer without perforation Bilateral pleural effusions-larger on the right Blood cultures with no growth in 24 hours White blood cell count continues to increase Antibiotics broadened to Vanco/Zosyn today CT with above findings, started on twice daily PPI Abdomen soft and nontender Infectious disease to be consulted as well Daily CBC, monitor for fevers Echocardiogram ordered History of CVA, Alzheimer's/dementia Patient with episodic confusion, agitation Sitter required Had a fall in the hospital Ambulatory with PT/walker Bradycardia/irregular heart rhythm Cardiology consulted, will keep patient on telemetry and obtain echocardiogram Acute kidney injury Renal function improved with IV fluids, continue to monitor renal function daily If there is worsening consider nephrology consult Hypertension Hyperlipidemia BPH Continue home medications DVT PPX: Heparin subcu Code status: Full code Time Spent Managing Pts Care (In Minutes): 35 <Trung Mendoza - Last Filed: 04/21/24 15:54> I have personally seen and evaluated the patient. I have reviewed the history, physical exam findings, and assessment provided by Trung Mendoza REFLESHER. Care with the plan of care as documented <Sue Haney - Last Filed: 04/21/24 16:51>
--- NOTE | 2024-04-21 16:47 | EKG ---
Test Date: 2024-04-20 Test Time: 13:28:38 Hospital Staff Pharmacist: SONAL MEASUREMENT RESULTS: Intervals: Rate: 43 [place]: QRSD: 144 QT: 650 QTc: 549 [place]: P: 43 [place]: QRS: -24 T: 54 INTERPRETIVE STATEMENTS: Atrial flutter Right bundle branch block Abnormal ECG Compared to ECG 11/01/2012 10:14:28 Sinus rhythm no longer present Left-axis deviation no longer present Electronically Signed On 04-21-24 16:44:08 SECURITY ORDERLY by Pérez Calderon
--- NOTE | 2024-04-21 16:47 | EKG ---
Test Date: 2024-04-20 Test Time: 13:29:53 Account Representative: SONAL MEASUREMENT RESULTS: Intervals: Rate: 43 [place]: QRSD: 144 QT: 662 QTc: 559 [place]: P: 36 [place]: QRS: -31 T: 48 INTERPRETIVE STATEMENTS: Atrial flutter Left axis deviation Right bundle branch block Abnormal ECG Compared to ECG 04/20/2024 13:28:38 Left-axis deviation now present Electronically Signed On 04-21-24 16:44:02 SUPERVISOR REFINING by Pérez Calderon
--- NOTE | 2024-04-21 16:53 | EKG ---
Test Date: 2024-04-19 Test Time: 13:36:44 Blueprinter: MEASUREMENT RESULTS: Intervals: Rate: 54 [place]: QRSD: 134 QT: 484 QTc: 458 [place]: P: [place]: QRS: -82 T: 38 INTERPRETIVE STATEMENTS: Sinus rhythm with 2nd degree AV block (Mobitz I) Right bundle branch block Left anterior fascicular block Bifascicular block Abnormal ECG Compared to ECG 11/01/2012 10:14:28 Left anterior fascicular block now present Bifascicular block now present Left-axis deviation no longer present Electronically Signed On 04-21-24 16:46:32 BOARDINGHOUSE KEEPER by Pérez Calderon
[2024-04-21] MEDS: PANTOPRAZOLE 40 MG INJ IVP SCH (21:55)
[2024-04-22 05:45] LABS: Absolute Eosinophils 0.7 K/uL (0-0.5); Absolute Lymphocytes (CBC) 2.6 K/uL (0.7-4.9); Absolute Monocytes 0.8 K/uL (0.1-1.3); Absolute Neutrophil 10.7 K/uL (1.8-8.0); Basophils % 0.2 % (0-1.3); Eosinophils % 4.6 % (0-4.4); Hematocrit 30.8 % (39.6-49.0); Hemoglobin 10.3 g/dL (13.6-17.9); Lymphocytes % 17.7 % (15.3-44.8); MCH 31.4 pg (27.0-35.0); MCHC 33.4 g/dL (32.0-36.0); MPV 9.6 fL (7.6-11.3); Monocytes % 5.3 % (3.3-12.3); Neutrophils % 72.2 % (41.7-73.7); Nucleated RBC Absolute Count 0.1 (0-0); Nucleated Red Blood Cells % 0.3 % (0-0); Platelets 246 thou/uL (152-406); RBC Red Blood Cell Count 3.27 M/uL (4.33-5.43); Red Cell Distribution Width 14.2 % (12.1-15.2)
[2024-04-22 05:48] LABS: Anion Gap 9.3 mEq/L (5.0-15.0); Magnesium 3.2 mg/dL (1.6-2.4); Phosphorus 3.5 mg/dL (2.5-4.9); Potassium 4.3 mEq/L (3.5-5.1)
--- NOTE | 2024-04-22 06:48 | ECHO ---
HEIGHT: 5 ft 7 in WEIGHT: 150 lb 0.04 oz DATE OF STUDY: 04/21/[address]: Pérez Calderon MD 2-DIMENSIONAL: YES M.MODE: YES DOPPLER: YES COLOR FLOW: YES TDS: PORTABLE: YES DEFINITY: BUBBLE STUDY: DIAGNOSIS: BRADYCARDIA/ FALL CARDIAC HISTORY: CATHERIZATION: SURGERY: PROSTHETIC VALVE: PACEMAKER: MEASUREMENTS (cm) DIASTOLIC (NORMALS) SYSTOLIC (NORMALS) IVSd 1.0 (0.6-1.2) LA Diam 3.4 (1.9-4.0) LVEF 60-65% LVIDd 4.8 (3.5-5.7) LVIDs 2.3 (2.0-3.5) %FS LVPWd 1.1 (0.6-1.2) Ao Diam 2.9 (2.0-3.7) 2 DIMENSIONAL ASSESSMENT: RIGHT ATRIUM: NORMAL LEFT ATRIUM: NORMAL RIGHT VENTRICLE: NORMAL LEFT VENTRICLE: NORMAL TRICUSPID VALVE: MILD TRICUSPID REGURGITATION MITRAL VALVE: CALCIFIED PULMONIC VALVE: NORMAL AORTIC VALVE: CALCIFIED PERICARDIAL EFFUSION: NONE AORTIC ROOT: NORMAL LEFT VENTRICULAR WALL MOTION: NORMAL DOPPLER/COLOR FLOW: NORMAL COMMENTS: 1. NORMAL LEFT VENTRICULAR SYSTOLIC FUNCTION, EJECTION FRACTION 60-65%, NORMAL WALL MOTION 2. NORMAL DIASTOLIC FUNCTION 3. NORMAL FILLING PRESSURE TECHNOLOGIST: CAROLANN CAMEJO
[2024-04-22] MEDS: PIPERACIL/TAZO 3.375 GM VIAL IV ONE (09:51)
--- NOTE | 2024-04-22 13:52 | P.PN ---
Subjective Date of Service: 04/22/24 Chief Complaint: Generalized weakness Subjective: No new changes, No C/O voiced, Tolerating diet, Ambulating, Improving Review of Systems 10-point ROS is otherwise unremarkable Physical Examination - Vital Signs Temperature: 98.0 F Blood Pressure: 148/59 Pulse: 63 Respirations: 18 Pulse Ox (%): 97 - Physical Exam General: Alert, In no apparent distress, Demented HEENT: Atraumatic, PERRLA, EOMI Neck: Supple, JVD not distended Respiratory: Clear to auscultation bilaterally, Normal air movement Cardiovascular: Regular rate/rhythm, Normal S1 S2 Gastrointestinal: Normal bowel sounds, No tenderness Musculoskeletal: No tenderness Integumentary: No rashes Neurological: Normal speech, Normal tone, Normal affect Lymphatics: No axilla or inguinal lymphadenopathy - Studies Medications List Reviewed: Yes Assessment And Plan - Current Problems (Diagnosis) (1) Bradycardia Current Visit: Yes Status: Acute Plan: EKG reviewed which shows Flutter with slow ventricular response overnight tele shows patient is back into sinus rhythm start low dose Eliquis 2.5 mg po BID Physician Review: Patient Assessed, Agree with Above Assessment and Plan
--- NOTE | 2024-04-22 14:02 | P.PN ---
Date of Service: 04/22/24 Subjective: Improved from yesterday WBC dropping ROS: 10 point ROS as noted above, otherwise negative Physical exam GEN: Alert, oriented, NAD HEENT: Normal conjunctiva, sclera anicteric CV: Regular rate and rhythm, no edema Pulm: Nonlabored respirations on room air ABD: Soft, nontender, nondistended MSK: No joint tenderness Integumentary: No rashes Neuro: Normal speech, normal affect Vitals reviewed Assessment: Leukocytosis/elevated procalcitonin/CRP Infectious versus inflammatory duodenitis/possible duodenal ulcer without perforation Bilateral pleural effusions-larger on the right History of CVA, Alzheimer's/dementia Bradycardia/irregular heart rhythm Acute kidney injury Hypertension Hyperlipidemia BPH Plan: Leukocytosis/elevated procalcitonin/CRP Infectious versus inflammatory duodenitis/possible duodenal ulcer without perforation Bilateral pleural effusions-larger on the right Blood cultures with no growth in 24 hours White blood cell count proved today Antibiotics broadened to Vanco/Zosyn CT with above findings, started on twice daily PPI Abdomen soft and nontender Infectious disease consulted Daily CBC, monitor for fevers Echocardiogram ordered History of CVA, Alzheimer's/dementia Patient with episodic confusion, agitation Sitter required Had a fall in the hospital Ambulatory with PT/walker Bradycardia/irregular heart rhythm Cardiology consulted, will keep patient on telemetry and obtain echocardiogram Paroxysmal A-fib/flutter cardiology recommends starting Eliquis 2.5 twice daily Acute kidney injury Renal function improved with IV fluids, continue to monitor renal function daily If there is worsening consider nephrology consult Hypertension Hyperlipidemia BPH Continue home medications DVT PPX: eliquis Code status: Full code Time Spent Managing Pts Care (In Minutes): 35
[2024-04-22] MEDS: APIXABAN 2.5 MG TABLET PO SCH (20:15)
--- NOTE | 2024-04-22 21:28 | CON ---
History Of Present Illness: This is an 83-year-old male. I was consulted to evaluate elevated WBC c ount and antibiotic management. The patient has significant past medical history of stroke, severe d ementia, Alzheimer's, coming into the emergency room with generalized weakness of 3 days. The patien t denies any headache, nausea, vomiting, chest pain, abdominal pain, constipation, or diarrhea. Stil l somewhat confused, but able to communicate well when questioned. Past Medical History: As per HPI. Social History: Nonsmoker, nondrinker. Family History: Noncontributory. Medications: Vancomycin and Zosyn. See MARs for other medications. Allergies: NO KNOWN DRUG ALLERGIES. Review of Systems: A 10-point review was performed. Physical Examination: General: This is an 83-year-old male, lying in bed, not in any acute cardiopulmonary distress. Vital Signs: Temperature 98, pulse 65, respirations 18, blood pressure 144/65. HEENT: Unremarkable. Neck: Supple. Lungs: Basal crackles. Heart: S1, S2. Regular. Abdomen: Soft, nontender. Bowel sounds present. Extremities: No edema. Laboratory And Imaging Data: WBC 14.9, hemoglobin 10.3, platelets 246. BUN of 44, creatinine 1.02. Urinalysis shows no wbc. Micro data shows blood cultures negative for more than [address] chest , abdomen, and pelvis reports the patient has inflammatory changes involving the proximal duodenum wi th sequela of infectious or inflammatory duodenitis. The duodenal ulcer is also possible, trace flui d tracking along with the right paracolic gutter, nonspecific central predominant interstitial thicke krista with the lungs and pleural effusion, larger on the right. Assessment And Plan: This is an 83-year-old male with significant past medical history of Alzheimer' s and dementia, coming in with falls and leukocytosis, possible pneumonitis with CT scan showing duod enitis, could be the reason for his leukocytosis. Anemia of chronic disease. Consider switching antibiotic to Rocephin if culture remained negative as MRSA is also negative. On discharge, the patient can be sent on Cipro and Flagyl. Follow up with [facility] team and follow up with chest x-ray in next few days. We will continue to monitor signs of inf ection with WBC and fever trends. NF/MODL Voice ID: [id number] Report ID: [id number]
[2024-04-23] MEDS: ACETAMINOPHEN 325 MG TABLET PO PRN (06:38)
[2024-04-23 07:04] LABS: Absolute Basophils 0.1 K/uL (0-0.5); Absolute Eosinophils 0.5 K/uL (0-0.5); Absolute Lymphocytes (CBC) 2.7 K/uL (0.7-4.9); Absolute Monocytes 0.8 K/uL (0.1-1.3); Absolute Neutrophil 10.9 K/uL (1.8-8.0); Basophils % 0.4 % (0-1.3); Eosinophils % 3.2 % (0-4.4); Hematocrit 32.1 % (39.6-49.0); Hemoglobin 10.7 g/dL (13.6-17.9); Lymphocytes % 18.3 % (15.3-44.8); MCH 31.3 pg (27.0-35.0); MCHC 33.3 g/dL (32.0-36.0); MCV 93.8 fL (80-100); MPV 8.6 fL (7.6-11.3); Monocytes % 5.1 % (3.3-12.3); Platelets 302 thou/uL (152-406); RBC Red Blood Cell Count 3.43 M/uL (4.33-5.43); Red Cell Distribution Width 14.4 % (12.1-15.2)
[2024-04-23 07:11] LABS: Anion Gap 7.6 mEq/L (5.0-15.0); Magnesium 2.5 mg/dL (1.6-2.4); Phosphorus 3.3 mg/dL (2.5-4.9); Potassium 4.6 mEq/L (3.5-5.1)
[2024-04-23 08:27] LABS: Atypical Lymphocytes 2 %; Band Neutrophils 1 % (0-1); Blood Morphology Comment NOT SEEN (NOT SEEN); Differential Total Cells Count 100; Eosinophils 4 % (0-3); Lymphocytes 22 % (15-42); Metamyelocytes 2 % (0-0); Monocytes 6 % (0-10); Platelet Estimate ADEQ; Platelets Clumped FEW; Platelets, Giant RARE; Segmented Neutrophils 63 % (40-80); Toxic Granulation 1+
--- NOTE | 2024-04-23 14:32 | P.PN ---
Date of Service: 04/23/24 Subjective: Doing well No acute events overnight tolerating diet no complaints ROS: 10 point ROS as noted above, otherwise negative Physical exam GEN: Alert, oriented x1-2, NAD HEENT: Normal conjunctiva, sclera anicteric CV: Regular rate and rhythm, no edema Pulm: Nonlabored respirations on room air ABD: Soft, nontender, nondistended MSK: No joint tenderness Integumentary: No rashes Neuro: Normal speech, normal affect Vitals reviewed Assessment: Leukocytosis/elevated procalcitonin/CRP Infectious versus inflammatory duodenitis/possible duodenal ulcer without perforation Bilateral pleural effusions-larger on the right History of CVA, Alzheimer's/dementia Bradycardia/irregular heart rhythm Acute kidney injury Hypertension Hyperlipidemia BPH Plan: Leukocytosis/elevated procalcitonin/CRP Infectious versus inflammatory duodenitis/possible duodenal ulcer without perforation Bilateral pleural effusions-larger on the right Blood cultures with no growth in 24 hours White blood cell count proved today Antibiotics broadened to Vanco/Zosyn CT with above findings, started on twice daily PPI Abdomen soft and nontender Infectious disease consulted Daily CBC, monitor for fevers Echocardiogram -normal LVEF History of CVA, Alzheimer's/dementia Patient with episodic confusion, agitation Sitter required Had a fall in the hospital Ambulatory with PT/walker Bradycardia/irregular heart rhythm Paroxysmal A-fib/flutter Cardiology consulted, will keep patient on telemetry and obtain echocardiogram Paroxysmal A-fib/flutter cardiology recommends starting Eliquis 2.5 twice daily Acute kidney injury Renal function improved with IV fluids, continue to monitor renal function daily If there is worsening consider nephrology consult Hypertension Hyperlipidemia BPH Continue home medications DVT PPX: eliquis Code status: Full code Time Spent Managing Pts Care (In Minutes): 35
[2024-04-23] MEDS: TIZANIDINE 4 MG TABLET PO ONE (16:23)
[2024-04-23 19:54] VITALS: BMI 27.4
[2024-04-24] MEDS: VANCOMYCIN 1.25 GM in NA CHLORIDE 0.9% 250 ML IVPB SCH (01:20)
[2024-04-24 07:47] LABS: Absolute Eosinophils 0.6 K/uL (0-0.5); Absolute Neutrophil 12.7 K/uL (1.8-8.0); Basophils % 0.3 % (0-1.3); Eosinophils % 3.5 % (0-4.4); Hematocrit 32.6 % (39.6-49.0); Lymphocytes % 17.1 % (15.3-44.8); MCH 31.5 pg (27.0-35.0); MCHC 33.8 g/dL (32.0-36.0); MCV 93.4 fL (80-100); MPV 8.5 fL (7.6-11.3); Monocytes % 5.6 % (3.3-12.3); Neutrophils % 73.5 % (41.7-73.7); Nucleated Red Blood Cells % 0.1 % (0-0); Platelets 337 thou/uL (152-406); RBC Red Blood Cell Count 3.49 M/uL (4.33-5.43); Red Cell Distribution Width 14.3 % (12.1-15.2)
[2024-04-24 08:06] LABS: Anion Gap 7.9 mEq/L (5.0-15.0); Magnesium 2.6 mg/dL (1.6-2.4); Potassium 4.9 mEq/L (3.5-5.1)
--- NOTE | 2024-04-24 08:10 | P.PN ---
Date of Service: 04/24/24 Subjective: Patient developed complete heart block last night for around 8 seconds Moved to ICU [facility] with cards, will need transfer for pacemaker, agreeable ROS: 10 point ROS as noted above, otherwise negative Physical exam GEN: Alert, oriented x1-2, NAD HEENT: Normal conjunctiva, sclera anicteric CV: Regular rate and rhythm, no edema Pulm: Nonlabored respirations on room air ABD: Soft, nontender, nondistended MSK: No joint tenderness Integumentary: No rashes Neuro: Normal speech, normal affect Vitals reviewed Assessment: Atrial flutter with complete heart block Leukocytosis/elevated procalcitonin/CRP Infectious versus inflammatory duodenitis/possible duodenal ulcer without perforation Bilateral pleural effusions-larger on the right History of CVA, Alzheimer's/dementia Bradycardia/irregular heart rhythm Acute kidney injury Hypertension Hyperlipidemia BPH Plan: Atrial flutter with complete heart block DW cards, will need pacemaker Keep in ICU, [facility] Not on any beta blockers or antiarrhythmics Switch from eliquis to lovenox Now in NSR this AM Leukocytosis/elevated procalcitonin/CRP Infectious versus inflammatory duodenitis/possible duodenal ulcer without perforation Bilateral pleural effusions-larger on the right Blood cultures with no growth in 24 hours White blood cell count proved today Antibiotics broadened to Vanco/Zosyn CT with above findings, started on twice daily PPI Abdomen soft and nontender Infectious disease consulted Daily CBC, monitor for fevers Echocardiogram -normal LVEF History of CVA, Alzheimer's/dementia Patient with episodic confusion, agitation Sitter required Had a fall in the hospital Ambulatory with PT/walker Acute kidney injury Renal function improved with IV fluids, continue to monitor renal function daily If there is worsening consider nephrology consult Hypertension Hyperlipidemia BPH Continue home medications DVT PPX: eliquis Code status: Full code Time Spent Managing Pts Care (In Minutes): 35
[2024-04-24 08:13] VITALS: O2SAT 98
[2024-04-24 08:23] LABS: Thyroid Stimulating Hormone 15.6 uIU/mL (0.358-3.740)
--- NOTE | 2024-04-24 08:24 | RAD REPORT ---
EXAMINATION: ONE VIEW CHEST XR CLINICAL INDICATION: Eval pleural effusion TECHNIQUE: Frontal chest projection is submitted. Examination is limited by patient positioning and t echnique. COMPARISON: 04/19/2024 FINDINGS: Extensive bilateral pulmonary opacities are noted which may represent pulmonary edema or pneumonia. F indings appear moderately progressive since comparative study. Trace right pleural effusion. The heart is upper limit of normal in size. No displaced fractures identified. IMPRESSION: Moderate worsening in lung aeration since comparison study.
--- NOTE | 2024-04-24 09:25 | P.PN ---
Subjective Date of Service: 04/24/24 Chief Complaint: Generalized weakness Subjective: Other (Patient is doing well but had an episode of CHB overnight.) Review of Systems 10-point ROS is otherwise unremarkable Physical Examination - Vital Signs Temperature: 97.3 F Blood Pressure: 176/67 Pulse: 65 Respirations: 13 Pulse Ox (%): 96 - Physical Exam General: Alert, In no apparent distress, Demented HEENT: Atraumatic, PERRLA, EOMI Neck: Supple, JVD not distended Respiratory: Clear to auscultation bilaterally, Normal air movement Cardiovascular: Regular rate/rhythm, Normal S1 S2 Gastrointestinal: Normal bowel sounds, No tenderness Musculoskeletal: No tenderness Integumentary: No rashes Neurological: Normal speech, Normal tone, Normal affect Lymphatics: No axilla or inguinal lymphadenopathy - Studies Medications List Reviewed: Yes Assessment And Plan - Current Problems (Diagnosis) (1) Bradycardia Current Visit: Yes Status: Acute Plan: EKG reviewed which shows Flutter with slow ventricular response overnight tele shows patient went into complete heart block with 8 seconds pause, now back to sinus Patient will need to be evaluated for pacemaker urgently, transfer to tertiary hospital with EP coverage have atropine and pacing pads at bedside, consider dopamine drip, if it happens again. agree with holding eliquis and starting lovenox as patient will need pacemaker implantation. Physician Review: Patient Assessed, Agree with Above Assessment and Plan
[2024-04-24] MEDS: ENOXAPARIN 80 MG/0.8 ML SQ SCH (09:38)
[2024-04-24] MEDS ORDERED: ATROPINE SULFATE 1 MG/ML INJ IV PRN (10:15)
[2024-04-24] MEDS ORDERED: ATROPINE SULF 1 MG/10 ML SYR IV ONE (10:17)
--- NOTE | 2024-04-24 11:18 | P.DS ---
Admission Date: 04/19/24 Discharge Date: 04/24/24 Reason for Admission: Generalized weakness Consultations: Cardiology Infectious disease Brief History of Present Illness: Arjun Barillas is an 83 year old male with Pmhx CVA, severe dementia, and Alzheimer's who presents to the ED with generalized weakness for 3 days. Arjun has severe dementia and is unable to communicate but does know his name. On evaluation, kidney function has decreased with no known kidney issues in the past. Laboratory evaluation significant for BUN/creatinine WBC 12.2, H&H 10/32, BUN/creatinine 84/2.35, GFR 26. Patient sees [facility] for medical care. Head CT report "No acute intracranial abnormality. " Chest x-ray report "Likely some mild scarring or atelectasis in the lung bases. No consolidative airspace disease or edema." Arjun will be admitted to hospitalist service for further evaluation. Hospital Course: Assessment: Atrial flutter with complete heart block Leukocytosis/elevated procalcitonin/CRP Infectious versus inflammatory duodenitis/possible duodenal ulcer without perforation Bilateral pleural effusions-larger on the right History of CVA, Alzheimer's/dementia Bradycardia/irregular heart rhythm Acute kidney injury Hypertension Hyperlipidemia BPH Patient was initially admitted to the hospital for generalized weakness, he subsequently developed significant leukocytosis in the coming days peaking at 19.9. CT chest abdomen pelvis was obtained which showed bilateral pleural effusions, suspected duodenitis. Antibiotics were adjusted to vancomycin/Zosyn white blood cell count had been improving. Exam his abdomen is benign, he has no specific complaints although he does have advanced dementia. He has also been on twice daily PPI, he does not take any beta-roderick or antiarrhythmics. During his hospitalization it was noted that he was periodically in atrial flutter, he was seen by cardiology who recommended initiation of Eliquis 2.5 mg twice daily, echocardiogram was also obtained showed normal LVEF, normal wall motion, normal diastolic function and normal filling pressure. Overnight on 04/23 patient developed atrial flutter with slow ventricular response/complete heart block with his rate dipping down to 12 and around an 18- second pause. This was reviewed with cardiology who recommends patient be transferred for pacemaker placement/EP evaluation. Patient is been accepted to the [facility] for further management in this regard. <Trung Mendoza - Last Filed: 04/24/24 11:20> Admission Date: 04/19/24 Discharge Date: 04/24/24 <Olaf Lima - Last Filed: 04/24/24 12:06> Vital Signs/Physical Exam: Temp Pulse Resp BP Pulse Ox 97.3 F 64 13 176/67 H 96 04/24/24 09:25 04/24/24 09:37 04/24/24 09:25 04/24/24 09:37 04/24/24 09:25 General: Alert, In no apparent distress, Oriented x1 HEENT: Atraumatic, PERRLA Neck: Supple, JVD not distended Respiratory: Clear to auscultation bilaterally, Normal air movement Cardiovascular: Regular rate/rhythm, Normal S1 S2 Gastrointestinal: Normal bowel sounds, No tenderness Musculoskeletal: No tenderness Integumentary: No rashes Neurological: Dementia Laboratory Data at Discharge: WBC 17.30 thou/uL (4.3-10.9) H 04/24/24 07:07 Hgb 11.0 g/dL (13.6-17.9) L 04/24/24 07:07 Hct 32.6 % (39.6-49.0) L 04/24/24 07:07 Plt Count 337 thou/uL (152-406) 04/24/24 07:07 Sodium 138 mEq/L (136-145) 04/24/24 07:07 Potassium 4.9 mEq/L (3.5-5.1) 04/24/24 07:07 BUN 23 mg/dL (7-18) H 04/24/24 07:07 Creatinine 0.95 mg/dL (0.70-1.30) 04/24/24 07:07 Glucose 94 mg/dL (74-106) 04/24/24 07:07 Phosphorus 3.0 mg/dL (2.5-4.9) 04/24/24 07:07 Magnesium 2.6 mg/dL (1.6-2.4) H 04/24/24 07:07 Total Bilirubin 0.9 mg/dL (0.2-1.0) 04/19/24 10:22 AST 59 U/L (15-37) H 04/19/24 10:22 ALT 96 U/L (16-61) H 04/19/24 10:22 Alkaline Phosphatase 116 U/L (45-117) 04/19/24 10:22 <Trung Mendoza - Last Filed: 04/24/24 11:20> Vital Signs/Physical Exam: Temp Pulse Resp BP Pulse Ox 97.3 F 64 13 176/67 H 96 04/24/24 09:25 04/24/24 09:37 04/24/24 09:25 04/24/24 09:37 04/24/24 09:25 Laboratory Data at Discharge: WBC 17.30 thou/uL (4.3-10.9) H 04/24/24 07:07 Hgb 11.0 g/dL (13.6-17.9) L 04/24/24 07:07 Hct 32.6 % (39.6-49.0) L 04/24/24 07:07 Plt Count 337 thou/uL (152-406) 04/24/24 07:07 Sodium 138 mEq/L (136-145) 04/24/24 07:07 Potassium 4.9 mEq/L (3.5-5.1) 04/24/24 07:07 BUN 23 mg/dL (7-18) H 04/24/24 07:07 Creatinine 0.95 mg/dL (0.70-1.30) 04/24/24 07:07 Glucose 94 mg/dL (74-106) 04/24/24 07:07 Phosphorus 3.0 mg/dL (2.5-4.9) 04/24/24 07:07 Magnesium 2.6 mg/dL (1.6-2.4) H 04/24/24 07:07 Total Bilirubin 0.9 mg/dL (0.2-1.0) 04/19/24 10:22 AST 59 U/L (15-37) H 04/19/24 10:22 ALT 96 U/L (16-61) H 04/19/24 10:22 Alkaline Phosphatase 116 U/L (45-117) 04/19/24 10:22 <Olaf Lima - Last Filed: 04/24/24 12:06> Diet: NPO Time spent managing pt's care (in minutes): 62 <Trung Mendoza - Last Filed: 04/24/24 11:20> <Olaf Lima - Last Filed: 04/24/24 12:06> Home Medications: Amlodipine [Norvasc] 5 mg PO DAILY 04/19/24 Areds 2 1 tab PO BID 04/19/24 Cholecalciferol (Vitamin D3) [Vitamin D3] 0.5 tab PO DAILY 04/19/24 Clopidogrel Bisulfate [Plavix] 75 mg PO DAILY 04/19/24 Finasteride 5 mg PO DAILY 04/19/24 Fluoxetine HCl 20 mg PO DAILY 04/19/24 Levothyroxine [Synthroid] 50 mcg PO DAILY 04/19/24 Multivitamin 1 each PO DAILY 04/19/24 Potassium Chloride 10 meq PO DAILY 04/19/24 Simvastatin 80 mg PO BEDTIME 04/19/24 Physician Discharge Instructions: Patient was initially admitted to the hospital for generalized weakness, he subsequently developed significant leukocytosis in the coming days peaking at 19.9. CT chest abdomen pelvis was obtained which showed bilateral pleural effusions, suspected duodenitis. Antibiotics were adjusted to vancomycin/Zosyn white blood cell count had been improving. Exam his abdomen is benign, he has no specific complaints although he does have advanced dementia. He has also been on twice daily PPI, he does not take any beta-roderick or antiarrhythmics. During his hospitalization it was noted that he was periodically in atrial flutter, he was seen by cardiology who recommended initiation of Eliquis 2.5 mg twice daily, echocardiogram was also obtained showed normal LVEF, normal wall motion, normal diastolic function and normal filling pressure. Overnight on 04/23 patient developed atrial flutter with slow ventricular response/complete heart block with his rate dipping down to 12 and around an 18- second pause. This was reviewed with cardiology who recommends patient be transferred for pacemaker placement/EP evaluation. [facility]. Last dose of Eliquis was 04/23/2024 in the evening Given therapeutic Lovenox morning of 04/24 [facility]: [facility] [Primary Care Provider] -
[2024-04-24 12:46] VITALS: BP 163/52; TEMP 98.2
== END 2024-04-24 12:45 | DRG 872 ==
LOC: ER 09:05 → ERHOLD 18:37 → 2ND 22:03 → 3RD-ICU 04-24 06:14
PROVIDERS: ADMIT Family Medicine; ATTEND Hospitalist
DX: A41.9 Sepsis, unspecified organism (principal); N17.9 Acute kidney failure, unspecified; F02.C11 Dementia in other diseases classified elsewhere, severe, with agitation; R47.01 Aphasia; J91.8 Pleural effusion in other conditions classified elsewhere; I44.2 Atrioventricular block, complete; I48.92 Unspecified atrial flutter; R65.20 Severe sepsis without septic shock; G30.9 Alzheimer's disease, unspecified; E86.0 Dehydration; E03.9 Hypothyroidism, unspecified; E83.42 Hypomagnesemia; E78.5 Hyperlipidemia, unspecified; I10 Essential (primary) hypertension; I69.320 Aphasia following cerebral infarction; C76.0 Malignant neoplasm of head, face and neck; N40.0 Benign prostatic hyperplasia without lower urinary tract symptoms; K26.9 Duodenal ulcer, unspecified as acute or chronic, without hemorrhage or perforation; R00.1 Bradycardia, unspecified; Z79.890 Hormone replacement therapy; Z79.899 Other long term (current) drug therapy; Z79.02 Long term (current) use of antithrombotics/antiplatelets; W19.XXXA Unspecified fall, initial encounter; Y99.9 Unspecified external cause status; Y93.9 Activity, unspecified; Y92.9 Unspecified place or not applicable
CPT/HCPCS: 36415; 70450; 71045; 71260; 74177; 80048; 80076; 80202; 81001; 83735; 84100; 84145; 84439; 84443; 84484; 85025; 85027; 86140; 87040; 92526; 92610; 93005; 93306; 96360; 96361; 96372; 97116; 97161; 99285; J0461; J0696; J1644; J2470; J2543; J3370; J3486; J7030; J7050; Q9967